=== PATIENT | female | born 1980 | race Caucasian/White ===

== ENCOUNTER → 2020-08-01 13:00 | Outpatient (CLI) | payer SELFPAY ==
--- NOTE | ~2020-08-01 | US_ITS ---
Corrected Report Correction to Acct # 08/02/2020 [facility] EXAMINATION: US soft tissue abdomen DATE: 08/01/2020 12:13 INDICATION: Ventral hernia TECHNIQUE: Multiple grayscale and Doppler ultrasound images of the region of concern at the supraumbilical anterior abdomen were obtained. COMPARISON: None FINDINGS: Moderate-sized fat-containing ventral hernia which measures 5.4 x 5.8 x 2.6 cm which extends through an orifice measuring 1.7 x 2.0 cm. No significant change in size with Valsalva. No evident herniated bowel. IMPRESSION: 1. Moderate-sized fat-containing supraumbilical ventral hernia. Reviewed, dictated and finalized at location B. [facility]
== END ==
PROVIDERS: Visit Provider Emergency Medicine
DX: K43.9 Ventral hernia without obstruction or gangrene (principal)
CPT/HCPCS: 76705